=== PATIENT | female | born 1965 | race Caucasian/White ===

== ENCOUNTER 2016-02-24 10:42 | Emergency (ER) | payer SELFPAY ==
[~2016-02-24] VITALS: Ht 172.7 cm; Wt 154.2 kg
[2016-02-24 11:33] VITALS: BP 155/77
== END 2016-02-24 12:19 | disposition home or self-care (01) ==
LOC: ER 10:43
DX: G43.909 Migraine, unspecified, not intractable, without status migrainosus (principal); Z76.0 Encounter for issue of repeat prescription

== ENCOUNTER 2016-03-16 13:35 | Emergency (ER) | payer SELFPAY ==
[~2016-03-16] VITALS: Ht 172.7 cm; Wt 158.8 kg
[2016-03-16 14:27] VITALS: BP 161/80
== END 2016-03-16 14:45 | disposition home or self-care (01) ==
LOC: ER 13:38
DX: J20.9 Acute bronchitis, unspecified (principal); G43.909 Migraine, unspecified, not intractable, without status migrainosus; Z76.0 Encounter for issue of repeat prescription

== ENCOUNTER 2016-08-03 09:40 | Emergency (ER) | payer SELFPAY ==
[~2016-08-03] VITALS: Ht 170.2 cm; Wt 145.1 kg
[2016-08-03 09:54] VITALS: BP 155/85
== END 2016-08-03 11:04 | disposition left against medical advice (07) ==
LOC: ER 09:40
DX: R05 Cough (principal); R51 Headache; Z53.21 Procedure and treatment not carried out due to patient leaving prior to being seen by health care provider

== ENCOUNTER 2016-12-26 05:08 | Emergency (ER) | payer SELFPAY ==
[~2016-12-26] VITALS: Ht 167.6 cm; Wt 136.1 kg
[2016-12-26 05:35] VITALS: BP 142/78
== END 2016-12-26 05:57 | disposition home or self-care (01) ==
LOC: EDBD 05:15 → ER 05:15
DX: G43.909 Migraine, unspecified, not intractable, without status migrainosus (principal)

== ENCOUNTER 2018-11-18 15:42 | Emergency (ER) | payer OTHER ==
[~2018-11-18] VITALS: Ht 170.2 cm; Wt 145.1 kg
[2018-11-18 16:00] VITALS: BP 157/82
[2018-11-18] MEDS ORDERED: BUTORPHANOL TARTRATE 2 MG/1 ML VIAL IM ONE (17:30)
[2018-11-18] MEDS ORDERED: PROMETHAZINE HCL 25 MG/ML 1ML IM ONE (17:30)
== END 2018-11-18 17:57 | disposition home or self-care (01) ==
LOC: ER 15:42
DX: G43.909 Migraine, unspecified, not intractable, without status migrainosus (principal); F17.210 Nicotine dependence, cigarettes, uncomplicated
CPT/HCPCS: 96372; 99283; J0595; J2550

== ENCOUNTER 2018-12-04 13:13 | Emergency (ER) | payer OTHER ==
[~2018-12-04] VITALS: Ht 170.2 cm; Wt 145.1 kg
[2018-12-04 13:28] VITALS: BP 113/81
== END 2018-12-04 16:29 | disposition left against medical advice (07) ==
LOC: ER 13:14
DX: J20.9 Acute bronchitis, unspecified (principal); M19.90 Unspecified osteoarthritis, unspecified site; F17.210 Nicotine dependence, cigarettes, uncomplicated; Z90.49 Acquired absence of other specified parts of digestive tract; Z53.29 Procedure and treatment not carried out because of patient's decision for other reasons

== ENCOUNTER 2019-04-13 06:41 | Emergency (ER) | payer OTHER ==
[~2019-04-13] VITALS: Ht 170.2 cm; Wt 145.1 kg
[2019-04-13 08:16] VITALS: BP 149/84
== END 2019-04-13 08:22 | disposition home or self-care (01) ==
LOC: ER 06:41
DX: J20.9 Acute bronchitis, unspecified (principal); G43.909 Migraine, unspecified, not intractable, without status migrainosus; M19.90 Unspecified osteoarthritis, unspecified site

== ENCOUNTER 2019-06-11 11:35 | Emergency (ER) | payer OTHER ==
[~2019-06-11] VITALS: Ht 170.2 cm; Wt 131.5 kg
[2019-06-11 12:43] VITALS: BP 138/79
[2019-06-11] MEDS ORDERED: KETOROLAC TROMETH 60MG/2ML VIAL IM ONE (14:00)
[2019-06-11] MEDS ORDERED: DexAMETHasone SOD PHOS 10MG/1ML VIAL INJ IM ONE (14:00)
== END 2019-06-11 14:30 | disposition home or self-care (01) ==
LOC: ER 11:35
DX: M25.512 Pain in left shoulder (principal); F17.210 Nicotine dependence, cigarettes, uncomplicated; Z90.49 Acquired absence of other specified parts of digestive tract
CPT/HCPCS: 96372; 99284; J1100; J1885

== ENCOUNTER 2019-07-27 11:29 | Emergency (ER) | payer OTHER ==
[~2019-07-27] VITALS: Ht 170.2 cm; Wt 138.3 kg
[2019-07-27 12:14] VITALS: BP 128/86
[2019-07-27] MEDS ORDERED: KETOROLAC TROMETH 60MG/2ML VIAL IM ONE (12:45)
== END 2019-07-27 13:12 | disposition home or self-care (01) ==
LOC: ER 11:29
DX: G43.909 Migraine, unspecified, not intractable, without status migrainosus (principal); J20.9 Acute bronchitis, unspecified; M19.90 Unspecified osteoarthritis, unspecified site; F17.210 Nicotine dependence, cigarettes, uncomplicated
CPT/HCPCS: 96372; 99283; J1885

== ENCOUNTER 2019-09-11 06:36 | Emergency (ER) | payer OTHER ==
[~2019-09-11] VITALS: Ht 170.2 cm; Wt 140.6 kg
[2019-09-11 08:06] VITALS: BP 145/83
== END 2019-09-11 08:23 | disposition home or self-care (01) ==
LOC: ER 06:36
DX: R09.82 Postnasal drip (principal); R09.81 Nasal congestion; R05 Cough; R51 Headache; M19.90 Unspecified osteoarthritis, unspecified site; F17.210 Nicotine dependence, cigarettes, uncomplicated

== ENCOUNTER 2019-10-26 10:18 | Emergency (ER) | payer OTHER ==
[~2019-10-26] VITALS: Ht 170.2 cm; Wt 140.6 kg
[2019-10-26 10:25] VITALS: BP 131/71
== END 2019-10-26 11:39 | disposition home or self-care (01) ==
LOC: ER 10:18
DX: H66.92 Otitis media, unspecified, left ear (principal); J20.9 Acute bronchitis, unspecified; M19.90 Unspecified osteoarthritis, unspecified site

== ENCOUNTER 2020-01-21 12:03 | Emergency (ER) | payer OTHER ==
[~2020-01-21] VITALS: Ht 167.6 cm; Wt 140.6 kg
[2020-01-21 12:34] VITALS: BP 146/88
== END 2020-01-21 15:33 | disposition left against medical advice (07) ==
LOC: ER 12:03
DX: H92.02 Otalgia, left ear (principal); Z53.21 Procedure and treatment not carried out due to patient leaving prior to being seen by health care provider